=== PATIENT | male | born 1970 | race Caucasian/White ===

== ENCOUNTER 2017-12-18 22:33 | Emergency (ER) | payer BC ==
[2017-12-18 22:39] VITALS: BP 165/86; PULSE 93; RESP 15; TEMP 97.8
[2017-12-18] MEDS ORDERED: CEPHALEXIN 500MG STARTER PACK 4 CAP BTL PO STA (23:06)
--- NOTE | 2017-12-18 23:19 | ED ---
General Adult HPI - General Chief complaint: Extremity Injury, Upper Stated complaint: rt arm infection Time Seen by Provider: 12/18/17 22:44 Source: patient, RN notes reviewed Mode of arrival: ambulatory Limitations: no limitations - History of Present Illness Initial comments: 47-year-old male presents to the emergency department with a chief complaint of abscess and redness to the right hand. Patient states this started a few days ago. He went to his doctor today and he had it squeezed and they got some drainage out and he was put on Bactrim. He states that his hands and more red and swollen this afternoon so he was concerned. He denies any history of MRSA or any history of this in the past. He states he has not had any fever or chills. He states it stayed right to the right hand where his issue is. He does not know if he had an injury or occult he does not know what caused this issue. Patient denies any other symptoms at this time. Patient denies any recent fever, chills, shortness of breath, chest pain, back pain, abdominal pain , nausea vomiting, numbness or tingling, dysuria or hematuria, constipation or diarrhea, headaches or visual changes, or any other current symptoms. - Related Data Home Medications Medication Instructions Recorded Confirmed Lisinopril 40 mg PO DAILY@0200 12/18/17 12/18/17 Pravastatin Sodium [Pravachol] 80 mg PO DAILY@0200 12/18/17 12/18/17 Sulfamethox-Tmp 800-160Mg [Bactrim 1 tab PO BID 12/18/17 12/18/17 DS 800-160 mg] Previous Rx's Medication Instructions Recorded Cephalexin [Keflex] 500 mg PO Q6HR #40 cap 12/18/17 Ibuprofen [Motrin] 600 mg PO Q6HR PRN #20 tab 12/18/17 Sulfamethox-Tmp 800-160Mg [Bactrim 2 each PO Q12HR #56 tab 12/18/17 DS 800-160 mg] Allergies Allergy/AdvReac Type Severity Reaction Status Date / Time Penicillins Allergy Rash/Hives Verified 12/18/17 22:46 Review of Systems ROS Statement: Those systems with pertinent positive or pertinent negative responses have been documented in the HPI. ROS Other: All systems not noted in ROS Statement are negative. Past Medical History Past Medical History: Hypertension History of Any Multi-Drug Resistant Organisms: None Reported Past Surgical History: No Surgical Hx Reported Past Psychological History: No Psychological Hx Reported Smoking Status: Former smoker Past Alcohol Use History: None Reported Past Drug Use History: None Reported General Exam - General Exam Comments Initial Comments: General: The patient is awake and alert, in no distress, and does not appear acutely ill. Neck: The neck is supple, there is no tenderness. Cardiovascular: There is a regular rate and rhythm. No murmur, rub or gallop is appreciated. Respiratory: Lungs are clear to auscultation, respirations are non-labored, breath sounds are equal. No wheezes, stridor, rales, or rhonchi. Musculoskeletal: Sensation intact with 2+ pulses throughout the right upper x- ray. Full range of motion of right hand. Have an abscess in between the first and second digit. No tendon pain or discomfort for range of motion. There is associated erythema surrounding the area. Full range of motion of the wrist. Neurological: CN II-XII intact, There are no obvious motor or sensory deficits. Coordination appears grossly intact. Speech is normal. Skin: Skin is warm and dry and no rashes or lesions are noted. Psychiatric: Normal mood and affect. Limitations: no limitations Course Vital Signs 12/18/17 22:36 Temperature 97.8 F Pulse Rate 93 Respiratory 15 Rate Blood Pressure 165/86 O2 Sat by Pulse 100 Oximetry Procedures - Procedures Initial comment: Procedure: Incision and drainage The skin overlying the abscess was prepped with Betadine, and anesthetized with 1% lidocaine without epinephrine. A #11 scalpel was then used to incise the abscess. Some purulent material was then extracted from the lesion. Wound culture obtained. Gauze dressing placed on top, The patient tolerated the procedure well. Medical Decision Making - Medical Decision Making 47-year-old male presents for abscess to the right hand. At this time he underwent drainage of the abscess. At this time we added Keflex and increase his Bactrim dosages. At this time we did discuss this could worsen this could be very severe infection due to the fact that it causes pain and he may require IV antibiotics and when to return the emergency Department for this. The patient stated that he understood and he is agreement this plan. At this time we will try outpatient care. All questions have been answered. He will be discharged. - Radiology Data Radiology results: report reviewed, image reviewed Disposition Clinical Impression: Abscess of right hand, Cellulitis of right hand Disposition: HOME SELF-CARE Condition: Stable Instructions: Abscess (ED), Warm Compress or Soak (ED) Additional Instructions: Please use medication as discussed. Please follow up with family doctor if symptoms have not improved over the next two days. Please return to the emergency room if your symptoms increase or worsen or for any other concerns. Prescriptions: Cephalexin [Keflex] 500 mg PO Q6HR #40 cap Ibuprofen [Motrin] 600 mg PO Q6HR PRN #20 tab PRN Reason: Pain Sulfamethox-Tmp 800-160Mg [Bactrim DS 800-160 mg] 2 each PO Q12HR #56 tab Referrals: Jaime Vergara DO [Primary Care Provider] - 1-2 days Time of Disposition: 23:19
== END 2017-12-18 23:26 | disposition home or self-care (01) ==
LOC: EC 22:33
DX: L02.511 Cutaneous abscess of right hand (principal); L03.113 Cellulitis of right upper limb; I10 Essential (primary) hypertension; Z87.891 Personal history of nicotine dependence; Z79.899 Other long term (current) drug therapy; Z88.0 Allergy status to penicillin
CPT/HCPCS: 10060; 87070; 87205; 99283

== ENCOUNTER 2018-01-02 04:24 | Emergency (ER) | payer BC ==
[2018-01-02 04:38] VITALS: TEMP 98
[2018-01-02] MEDS ORDERED: predniSONE 20 MG TAB PO STA (04:58)
[2018-01-02] MEDS ORDERED: FAMOTIDINE 20 MG/2 ML VIAL IV STA (04:58)
[2018-01-02] MEDS ORDERED: diphenhydrAMINE 50 MG/ML 1 ML VIAL IVP STA (04:58)
--- NOTE | 2018-01-02 05:10 | ED ---
Allergic Reaction HPI - General Chief complaint: Allergic Reaction Stated complaint: ALLERGIC RX Time Seen by Provider: 01/02/18 04:41 Source: patient Mode of arrival: ambulatory Limitations: no limitations - History of Present Illness Initial Comments: This patient's 47-year-old man who presents to be evaluated after he had recurrence of hives, itching, and a little bit of lip swelling. He had the symptoms yesterday and was seen at another emergency department. He was diagnosed with ALLERGIC reaction to antibiotics she was taking for an infection and treated. 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 Patient had taken 25 mg of Benadryl about 6 hours previously. He had taken 50 mg of prednisone about 24 hours previously. MD Complaint: allergic reaction, hives -: days(s) Exposure: medication Symptoms: itching, facial swelling, lip swelling Severity: moderate Treatment Prior to Arrival: benadryl, steroids Previous Allergy History: prior ED visit(s) - Related Data Home Medications Medication Instructions Recorded Confirmed Lisinopril 40 mg PO DAILY@0200 12/18/17 12/18/17 Pravastatin Sodium [Pravachol] 80 mg PO DAILY@0200 12/18/17 12/18/17 Sulfamethox-Tmp 800-160Mg [Bactrim 1 tab PO BID 12/18/17 12/18/17 DS 800-160 mg] Previous Rx's Medication Instructions Recorded Cephalexin [Keflex] 500 mg PO Q6HR #40 cap 12/18/17 Ibuprofen [Motrin] 600 mg PO Q6HR PRN #20 tab 12/18/17 Sulfamethox-Tmp 800-160Mg [Bactrim 2 each PO Q12HR #56 tab 12/18/17 DS 800-160 mg] Famotidine [Pepcid] 20 mg PO BID #14 tablet 01/02/18 Allergies Allergy/AdvReac Type Severity Reaction Status Date / Time cephalexin Allergy Rash/Hives Verified 01/02/18 04:38 clindamycin Allergy Swelling Verified 01/02/18 04:39 Penicillins Allergy Rash/Hives Verified 12/18/17 22:46 sulfamethoxazole Allergy Rash/Hives Verified 01/02/18 04:38 [From Bactrim] trimethoprim [From Bactrim] Allergy Rash/Hives Verified 01/02/18 04:38 Review of Systems ROS Statement: Those systems with pertinent positive or pertinent negative responses have been documented in the HPI. ROS Other: All systems not noted in ROS Statement are negative. Constitutional: Denies: fever, chills Eyes: Denies: eye pain ENT: Denies: throat pain Respiratory: Denies: cough, dyspnea Cardiovascular: Denies: chest pain, palpitations Gastrointestinal: Denies: abdominal pain, vomiting, diarrhea Skin: Reports: rash, pruritus Neurological: Denies: headache, weakness Past Medical History Past Medical History: Hypertension History of Any Multi-Drug Resistant Organisms: None Reported Past Surgical History: No Surgical Hx Reported Past Psychological History: No Psychological Hx Reported Smoking Status: Former smoker Past Alcohol Use History: None Reported Past Drug Use History: None Reported General Exam Limitations: no limitations General appearance: alert, in no apparent distress Head exam: Present: atraumatic, normocephalic Eye exam: Present: normal appearance. Absent: scleral icterus, conjunctival injection ENT exam: Present: normal oropharynx Neck exam: Present: normal inspection Respiratory exam: Present: normal lung sounds bilaterally. Absent: respiratory distress, wheezes, rales, rhonchi, stridor Cardiovascular Exam: Present: regular rate, normal rhythm, normal heart sounds. Absent: systolic murmur, diastolic murmur, rubs, gallop GI/Abdominal exam: Present: soft. Absent: distended, tenderness, guarding, rebound, rigid Extremities exam: Present: normal inspection, normal capillary refill. Absent: pedal edema, calf tenderness Back exam: Present: normal inspection. Absent: CVA tenderness (R), CVA tenderness (L) Neurological exam: Present: alert Skin exam: Present: warm, dry, intact, erythema, urticaria Course Vital Signs 01/02/18 01/02/18 01/02/18 04:28 05:37 06:47 Temperature 98 F Pulse Rate 103 H 90 96 Respiratory 16 16 19 Rate Blood Pressure 131/75 119/76 134/75 O2 Sat by Pulse 97 98 96 Oximetry Disposition Clinical Impression: Allergic reaction, Urticaria Disposition: HOME SELF-CARE Condition: Good Instructions: Urticaria (ED) Prescriptions: Famotidine [Pepcid] 20 mg PO BID #14 tablet Referrals: Jaime Vergara DO [Primary Care Provider] - 1-2 days
[2018-01-02] MEDS ORDERED: EPINEPHrine 1 MG/ML 1 ML AMP IM STA (06:11)
[2018-01-02 06:48] VITALS: BP 134/75; PULSE 96; RESP 19
== END 2018-01-02 07:07 | disposition home or self-care (01) ==
LOC: EC 04:24
DX: L50.0 Allergic urticaria (principal); I10 Essential (primary) hypertension; Z87.891 Personal history of nicotine dependence; Z79.899 Other long term (current) drug therapy; Z88.0 Allergy status to penicillin; Z88.2 Allergy status to sulfonamides; Z88.1 Allergy status to other antibiotic agents
CPT/HCPCS: 99283; 96374; 96375; 96372; J0171; J1200; J7512

== ENCOUNTER → 2018-11-26 | Outpatient (CLI) | payer BC ==
--- NOTE | 2018-11-26 15:54 | XR ---
EXAMINATION TYPE: XR ribs LT DATE OF EXAM: 11/26/2018 COMPARISON: Chest x-ray same date HISTORY: Cough, chest pain TECHNIQUE: 2 views left RIBS FINDINGS: No acute displaced fractures are evident. No pneumothorax is evident. IMPRESSION: 1. Normal left ribs
--- NOTE | 2018-11-26 15:55 | XR ---
EXAMINATION TYPE: XR chest 2V DATE OF EXAM: 11/26/2018 COMPARISON: 11/26/2018 INDICATION: Cough chest pain TECHNIQUE: Frontal and lateral views of the chest are obtained. FINDINGS: The heart size is normal. The pulmonary vasculature is normal. The lungs are clear. No pneumothorax is evident. IMPRESSION: 1. No acute pulmonary process.
== END | disposition home or self-care (01) ==
LOC: RADXRYALE 14:27
PROVIDERS: ATTEND Physician Assistant Medical
DX: R07.89 Other chest pain (principal); R05 Cough
CPT/HCPCS: 71046

== ENCOUNTER → 2021-02-15 | Outpatient (CLI) | payer BC ==
--- NOTE | 2021-02-16 12:27 | XR ---
EXAMINATION TYPE: XR lumbosacral spine min 4V DATE OF EXAM: 02/15/2021 CLINICAL HISTORY: Lumbar spine pain TECHNIQUE: Frontal, lateral, and oblique images of the lumbar spine are obtained. COMPARISON: None FINDINGS: There are 5 lumbar type vertebral bodies identified. Minimal levocurvature. The lumbar sp ine shows satisfactory alignment without evidence of acute fracture or dislocation. There is maintena nce of the normal lumbar lordosis. Mild narrowing the intervertebral disc spaces at L3-4 and L4-5. Mi ld anterolisthesis of grade 1 to grade 2 of L5 on S1. Multiple anterior osteophytes. No loss of verte bral body height to suggest acute compression fracture. Degenerative changes of the facets. Sacroilia c joints are intact. IMPRESSION: 1. No evidence of acute fracture or dislocation of the lumbar spine. 2. Mild degenerative changes. Mild anterolisthesis of grade 1 to grade 2 of L5 on S1.
== END | disposition home or self-care (01) ==
LOC: RADXRYALE 09:01
PROVIDERS: ATTEND Family Medicine
DX: M51.36 Other intervertebral disc degeneration, lumbar region (principal); M43.16 Spondylolisthesis, lumbar region
CPT/HCPCS: 72110

== ENCOUNTER → 2022-03-04 | Outpatient (CLI) | payer BC | END | disposition home or self-care (01) | LOC: RADXRYALE 10:02 | PROVIDERS: ATTEND Family Medicine | DX: Z53.9 Procedure and treatment not carried out, unspecified reason (principal) ==

== ENCOUNTER → 2023-09-11 | Outpatient (CLI) | payer BC ==
--- NOTE | 2023-09-11 14:12 | XR ---
EXAMINATION TYPE: XR chest 2V DATE OF EXAM: 09/11/2023 COMPARISON: 11/26/2018 HISTORY: 53-year-old male [id number] CHRONIC COUGH, SMOKER TECHNIQUE: Frontal and lateral views FINDINGS: The cardiomediastinal silhouette, aorta, and pulmonary vasculature are within normal limits. Unchange d mild interstitial prominence. Unchanged nodule, likely calcified granuloma in the left midlung. Min imal stringy atelectasis at the left base. No consolidation or pleural effusion. IMPRESSION: Chronic changes without acute cardiopulmonary process.
== END | disposition home or self-care (01) ==
LOC: RADXRYALE 09:31
PROVIDERS: ATTEND Family Medicine
DX: R91.8 Other nonspecific abnormal finding of lung field (principal); R05.3 Chronic cough; F17.210 Nicotine dependence, cigarettes, uncomplicated
CPT/HCPCS: 71046